=== PATIENT | male | born 1965 | race Caucasian/White ===

== ENCOUNTER 2018-01-09 18:00 | Emergency (ER) | payer OTHER, SELFPAY ==
[2018-01-09 18:09] VITALS: BP 148/84; PULSE 57; RESP 18; TEMP 36.5; O2SAT 97; BMI 31.9
--- NOTE | 2018-01-09 18:25 | ED_ITS ---
HPI - Extremity Problem General Chief complaint: Extremity Problem,Nontraumatic Stated complaint: BLOOD SQUIRTING FROM SURGICAL SITE Time Seen by Provider: 01/09/18 18:05 Source: patient and family Mode of arrival: ambulatory Limitations: no limitations History of Present Illness HPI Narrative: 52-year-old with very recent left knee arthroscopic surgery presents with his son and evaluation of bleeding from the incision site. He had just completed a surgical procedure at a free standing surgical site and while driving home felt warmth and wetness in his dressing and noted it to be saturated with blood. He called the on-call orthopedist and was referred here for further evaluation. He denies fever or chills. He is not dizzy nor weak or lightheaded. Onset (ago): minute(s) Related Data Allergies Allergy/AdvReac Type Severity Reaction Status Date / Time No Known Drug Allergies Allergy Verified 01/09/18 18:09 Review of Systems Review of Systems All systems reviewed & are unremarkable except as noted in HPI and below Constitutional Denies chills, Denies fever(s), Denies lethargy and Denies weakness Eyes Denies change in vision, Denies eye discharge, Denies irritation and Denies loss of vision ENT Ears, Nose, Mouth, and Throat: Denies change in voice, Denies neck pain and Denies sore throat Cardiovascular Denies chest pain, Denies irregular heart rhythm, Denies lightheadedness, Denies palpitations, Denies dyspnea, Denies dyspnea on exertion and Denies orthopnea Respiratory Denies cough, Denies dyspnea, Denies dyspnea on exertion and Denies wheezing Gastrointestinal Gastrointestinal: Denies abdominal pain, Denies change in bowel habits, Denies diarrhea, Denies nausea and Denies vomiting Genitourinary Denies hematuria, Denies flank pain, Denies urinary incontinence and Denies urinary urgency Musculoskeletal Reports joint swelling, Reports limited range of motion and Denies neck pain Integumentary/Breasts Denies pruritus, Denies erythema, Denies rash and Denies wounds Neurologic Denies confusion, Denies loss of vision and Denies weakness Psychiatric Denies anxiety, Denies confusion, Denies depression, Denies homicidal ideation and Denies suicidal ideation Endocrine Denies palpitations Hematologic/Lymphatic Denies easy bruising Allergic/Immunologic Denies wheezing [facility] Social History Smoking Status: Never smoker Exam Narrative Exam Narrative: GEN: AOx3 and in mild distress EYES: Pupils are equal, round, and reactive to light and accommodation. Extraoccular muscles are intact bilaterally. There is no subconjunctival hemorrhage or exudate. CHEST: Lungs are clear to auscultation bilaterally and free of wheezes, rales, or rhonchi. Heart rate is regular rhythm, there are no murmurs, clicks, rubs, or gallops. There is no chest wall tenderness. ABD: Abdomen is soft and nontender. There is no guarding or rebound. Bowel sounds are normal in all 4 quadrants. There is no mass or organomegaly. EXT: Left knee decreased range of motion secondary to pain and swelling. Surgical dressing saturated in blood. When removed lower to incision sites oozing dark blood. Patient has minimal pain. SKIN: Warm, pink, and dry. No erythema or rash Initial Vital Signs Initial Vital Signs: Vital Signs Temperature 97.7 F 01/09/18 18:09 Pulse Rate 57 L 01/09/18 18:09 Respiratory Rate 18 01/09/18 18:09 Blood Pressure 148/84 H 01/09/18 18:09 Pulse Oximetry 97 01/09/18 18:09 Procedures Laceration Repair Laceration 1: Site: lower extremity Side (If applicable): left Description: linear Depth: simple, single layer Local Anesthetic: lidocaine 1% and with epi Skin layer closed with: other (A few simple, interrupted deep, biting sutures achieved adequate hemostasis) Technique: other Course Orders Ordered: Discontinued Medications Oxycodone/Acetaminophen (Percocet 5/325) 2 tab PO NOW ONE Stop: 01/09/18 18:25 Last Admin: 01/09/18 18:28 Dose: 2 tab Consultations Consultation #1: Called to on-call orthopedist, happy with decision to place a few deep, biting sutures for hemostasis after discussion pressure not stopping bleeding. He recommends vaseline gauze and a pressure gauze with follow-up later today Vital Signs - 8 hr 01/09/18 18:09 Temperature 97.7 F Pulse Rate 57 L Respiratory Rate 18 Blood Pressure 148/84 H Pulse Oximetry 97 Discharge Plan Departure Patient Disposition: Home Clinical Impression: Postoperative hemorrhage from incision Discharge Date/Time: 01/09/18 19:29 Interventions: ED Discharge Assessment Last Done: 01/09/18 19:29 Instructions: DI for Post-Surgical Bleeding Activity Restrictions/Additional Instructions: *You have been diagnosed with [ post surgical bleeding ] *What to do: *continue to take medications as directed *Follow up with your orthopedist as planned, call for an appointment. Let them know you were seen in the Emergency Department and that we ask that you be seen in follow up *Return to ER if you should have any new, worsening or concerning symptoms Referrals: Dewayne Ellington MD [Physician] -
[2018-01-09] MEDS: OXYCODONE/ACETAMINOPHEN 5/325 TABLET 2 TAB PO (18:28)
--- NOTE | 2018-01-09 18:43 | PC.NURSE ---
s/p Artherscopic knee surgery done today, bleeding from surgical site, soaked the dressing and reinforced towel [employer]CTION[employer]. +CMS in L foot. Pt medicated with 2 tabs of oxycodone as ordered.
[2018-01-09 19:23] VITALS: BP 118/72; PULSE 91; RESP 17; O2SAT 98
--- NOTE | 2018-01-09 19:27 | PC.NURSE ---
R knee suture inplaced by Dr Penny. Xerofoam applied on the site and covered with ABD pads and wrapped with Kurlix and reinforced with acewrap. Pt advised to rewrap prn if L foot/toes become tingle/numb, delayed cap refill, pale or cool to touch. Pt verbalized the understanding.
== END 2018-01-09 19:29 | disposition home or self-care (01) ==
LOC: ED 19:30
PROVIDERS: Emergency Provider Emergency Medicine
DX: M96.830 Postprocedural hemorrhage of a musculoskeletal structure following a musculoskeletal system procedure (principal)
CPT/HCPCS: 12001; 99283; 99284

== ENCOUNTER 2018-07-07 09:45 | Inpatient (IN) | payer OTHER, SELFPAY ==
[2018-07-01 11:48] VITALS: BMI 34.2
[2018-07-07] VITALS (15 sets, daily range): BP systolic 100–139; BP diastolic 46–87; PULSE 76–101; RESP 10–20; TEMP 36.1–37.1; O2SAT 91–100; BMI 34.2
[2018-07-07] MEDS: LACTATED RINGERS 1,000 ML 42 ML IV ×2 (10:04→13:24)
--- NOTE | 2018-07-07 10:49 | PM.PREOP ---
Pre-operative Note Interval Note History & Physical reviewed/Exam performed by Physician: Yes Changes to H&P: No
[2018-07-07] MEDS: CEFAZOLIN 2 GM/100 ML FROZ.PIGGY IV ×2 (11:36→20:11)
--- NOTE | 2018-07-07 12:15 | SUR.OPER ---
Prone on spine table, head in foam head support, padded chest and pelvic supports, gel pad at knees, lower legs supported by pillows; nipples, genitalia and toes free of pressure, arms secured on foam padded arm boards at <90 degrees abduction. Tape over blanket at thigh secured to table.
[2018-07-07] MEDS: VANCOMYCIN 1,000 MG VIAL 1000 MG TOP (12:24)
[2018-07-07] MEDS: THROMBIN (RECOMBINANT) 5,000 UNIT VIAL 5000 UNIT TOP (12:25)
[2018-07-07] MEDS: BUPIVACAINE 0.5% (PF) 4 ML, MORPHINE-PF 4 MG, BUTORPHANOL 1 MG, fentaNYL 100 MCG INJ (12:36)
[2018-07-07] MEDS: SODIUM CHLORIDE 0.9% 1,000 ML, GENTAMICIN 80 MG IRR ×2 (12:36→12:37)
--- NOTE | 2018-07-07 14:23 | DI.RAD.S_ITS ---
PROCEDURE: XR LUMBAR SPINE 2-3V INDICATIONS: L5-S1 TLIF , TECHNIQUE: 2 views of the lumbar spine were acquired. COMPARISON: [facility], MR, MR LUMBAR SPINE WITHOUT CONTRAST, 05/09/2018, 10:31. FINDINGS: 2 intraoperative fluoroscopy images demonstrate discectomy and posterior fusion at L5-S1. IMPRESSION: Discectomy and posterior fusion at L5-S1. Dictated by: Karri Olmedo M.D. on 07/07/2018 at 16:30 Approved by: Karri Olmedo M.D. on 07/07/2018 at 16:31
--- NOTE | 2018-07-07 14:39 | P.OP_ITS ---
Operative Date/Time/Diagnoses Date of procedure: 07/07/18 Time of procedure: 14:34 Pre-op diagnosis: Lumbar stenosis with radiculopathy Post-op diagnosis: same Procedure & Clinicians Procedure: L5-S1 TLIF (post/post innerbody fusion) with cage L5 and S1 screws Iliac crest bone graft aspirate Use of microscope Placement of epidural catheter Indications: [age] year old male with intractable pain from stenosis. They had failed conservative management and requested operative intervention. Risks and benefits of surgery were discussed and appropriate consents were obtained. Surgeon: Greg Dickey Audio Visual Aids Director: Rox Levin Anesthesia Type: General Operative Notes Findings: None Closure Type: primary Specimen(s): none sent Prosthetic devices, grafts, tissues, transplants, or devices: NuVasive MAS reline screws Globus Rise cage Applied: catheter Estimated Blood Loss (mL): 20 Blood products transfused: none Procedure in detail: The patient was brought to the operating room and intubated on the table. A time-out was performed. They were then rolled over to the well- padded Vadim table in the prone position. Preoperative antibiotics were given. The back was prepped and draped in the standard sterile fashion. Using fluoroscopy, a 4 cm longitudinal incision was made to the right of the midline. We used Bovie to come down to and split the lumbodorsal fascia. Using fluoroscopy and monitoring, we then percutaneously placed Jamshidi needles down the pedicles of L5 and S1 on the right side. These were changed out to guidewires and then we tapped and then placed the NuVasive MAS Reline screw shanks. We then opened up the retractors and used Bovie to clear up the posterolateral gutter as well as medially along the lamina to the spinous processes. A bur was used to decorticate the transverse processes. We brought in the microscope. Using a combination of bur and Kerrison rongeurs, a laminectomy was performed from the right side. We cleared over past the midline and carefully depressed the dura until we were able to decompress the opposite side. We cleared out the neural foramen with a facetectomy. This completed the laminectomy at L5-S1. This was separate and distinct from the TLIF approach as we were decompressing the canal and the nerves. We then began the TLIF prep. We cleared off the rest of the facetectomy until we had an adequate approach to the disc space at L5-S1. We carefully cleaned up the remainder of the foramen until we could easily retract the exiting root as well as clearing medially below the dura and expose the disc space. The disc was prepped with bipolar and then an annulotomy was performed. We performed a diskectomy using a combination of paddles, jean paul, pituitaries, and curettes. We distracted the disc using a paddle and locked the retractor in an open position. We then filled the disc space with Osteocel bone graft. We then placed the globus Rise cage under fluoroscopy and then filled this in with more bone graft. The distraction on the retractor was released to compress down. This completed the posterior interbody fusion portion of the TLIF at L5-S1. We then placed the screw heads, sherley, and locked down the set screws. The wound was copiously irrigated. A small stab incision was made over the PSIS. We used a Jamshidi needle to aspirate several mL of bone marrow from the pelvis. This was mixed with the remaining Osteocell and combined with all of the locally harvested bone graft and placed in the posterolateral gutter for the posterior fusion of the TLIF at L5-S1. An epidural catheter was then placed in the spinal canal by carefully depressing the dura and advancing it 6 cm cephalad under the remaining lamina without resistance. The muscle fascia was closed. The catheter was then injected with a solution containing 4 mL of 0.5% Marcaine, 1 mg Stadol, 4 mg Duramorph, and 100 mcg of fentanyl. This was injected without resistance and the catheter was pulled. We then went to the opposite side. Again using fluoroscopy, a 3 cm incision was made and Bovie was used to come down to split the fascia. Using neural monitoring and fluoroscopy, Jamshidi needles were advanced down the pedicles of L5 and S1 on the left side. These were switched over guidewires, tapped, and screws placed. We then placed a sherley and locked the set screws on this side. The wound was irrigated. The fascia was closed. Vancomycin powder was placed in the wounds. The superficial and skin were closed. A sterile dressing was placed. The patient was then rolled over extubated and brought to recovery room without complications. Complications: none Condition: stable Disposition: PACU Plan for aftercare: Inpatient. Up with physical therapy.
[2018-07-07] MEDS: HYDROMORPHONE 2 MG INJ 0.5 MG IV ×4 (14:42→15:23)
[2018-07-07] MEDS: hydrOXYzine 50 MG/ML INJ IM (14:45)
[2018-07-07] MEDS: LORazepam 2 MG/ML SYRINGE 0.5 MG IV (15:16)
--- NOTE | 2018-07-07 15:33 | SUR.PHASEI ---
Report called to Nakia
--- NOTE | 2018-07-07 16:02 | SUR.PHASEI ---
Pt transferred to the floor with belongings bag and green jacket. Report to Nakia. VS stable. IV saline locked. Back drsg cdi.
[2018-07-07] MEDS: LACTATED RINGERS 1,000 ML 125 ML IV (16:11)
[2018-07-07] MEDS: OXYCODONE/ACETAMINOPHEN 5/325 TABLET 2 TAB PO ×2 (16:14→20:11)
[2018-07-07] MEDS: CELECOXIB 200 MG CAPSULE 400 MG PO (17:36)
[2018-07-07] MEDS: HYDROMORPHONE 1 MG INJ 0.5 MG IV ×2 (19:06→22:31)
[2018-07-07] MEDS: DOCUSATE 100 MG CAPSULE PO (20:05)
[2018-07-07] MEDS: MIRTAZAPINE 15 MG TABLET 30 MG PO (20:05)
[2018-07-07] MEDS: SENNOSIDES 8.6 MG TABLET 17.2 MG PO (20:05)
--- NOTE | 2018-07-07 21:22 | PC.NURSE ---
Pt alert/oriented. Pain between 5-8/10. Managed with Percocet, IV dilaudid, and ice. Dressing c/d/i, cms+. Continuous pulse ox on. RA 96%. Spouse staying the night. Using call light appropriately.
[2018-07-07] MEDS: hydrOXYzine pamoate 25 MG CAPSULE PO (23:48)
[2018-07-08] VITALS (7 sets, daily range): BP systolic 123–143; BP diastolic 60–89; PULSE 70–94; RESP 16–88; TEMP 36.4–36.8; O2SAT 98–100
[2018-07-08] MEDS: OXYCODONE/ACETAMINOPHEN 5/325 TABLET 2 TAB PO ×6 (00:31→22:37)
[2018-07-08] MEDS: LACTATED RINGERS 1,000 ML 125 ML IV (00:34)
[2018-07-08] MEDS: MAG HYDROX/ALUM/SIMETH 30 ML UDC PO ×2 (01:28→18:23)
[2018-07-08] MEDS: CEFAZOLIN 2 GM/100 ML FROZ.PIGGY IV (03:53)
[2018-07-08] MEDS: HYDROMORPHONE 0.5 MG INJ IV ×3 (04:08→16:25)
[2018-07-08 05:26] LABS: Hematocrit 38.8 % (41-53); Hemoglobin 12.9 g/dL (13.5-17.5)
--- NOTE | 2018-07-08 07:30 | PM.PNPO.1 ---
Subjective Date Patient Seen: 07/08/18 Time Patient Seen: 07:30 Interval history: Pain level 4 to 6/10, all across the back. He did require some IV Dilaudid overnight. Exam Vital Signs (past 8 hours): - 07/07/18 23:35 07/08/18 04:00 Temperature 98.7 F 98.0 F Pulse Rate 101 H 83 Respiratory Rate 16 16 Blood Pressure 125/77 137/68 Pulse Oximetry 97 98 Oxygen Delivery Method Room Air Oxygen Flow Rate 2 Const Orientation: alert and oriented x3 Back/Spine/Pelvis Other: Dressing was reinforced overnight but no new drainage. 5/5 motor both lower extremities. Objective Labs Result Diagrams: 07/08/18 04:53 Labs: Laboratory Results - last 24 hr 07/08/18 04:53 Hgb 12.9 L Hct 38.8 L Assessment & Plan Post-op Postoperative Procedures Operation Date: 07/07/18 11:45 Actual Procedures Side Surgeon p L5-S1 TLIF w/Instru fusion & bone graft Greg Dickey MD He looks good. Mobilize today with physical therapy. Anticipate discharge home tomorrow. Quality VTE Deep Vein Thrombosis/Pulmonary Embolism Present on Admission: No
[2018-07-08] MEDS: CELECOXIB 200 MG CAPSULE PO ×2 (09:03→21:09)
[2018-07-08] MEDS: ATORVASTATIN 10 MG TABLET PO (09:03)
[2018-07-08] MEDS: DOCUSATE 100 MG CAPSULE PO ×2 (09:03→21:10)
--- NOTE | 2018-07-08 10:17 | PT.IIE ---
Current Diagnoses Spinal stenosis, lumbar region with neurogenic claudication (07/07/18) Strain of muscle, fascia and tendon of lower back, initial encounter (07/07/18) Surgery Performed Operation Date: 07/07/18 11:45 Actual Procedures p L5-S1 TLIF w/Instru fusion & bone graft - Greg Dickey MD Surgical History (Last Updated 07/01/18 @ 12:16 by Lily Walton RN) History of bilateral carpal tunnel release (Acute) History of bilateral cataract extraction (Acute) Hx of arthroscopy of left knee (Acute) Hx of tonsillectomy (Acute) S/P manipulation of AC joint (Acute) Status post left unicompartmental knee replacement (Acute ~2017) Medical History (Last Updated 07/01/18 @ 12:16 by Lily Walton RN) Acid reflux (Acute) Anxiety (Acute) Anxiety attack (Acute ~2016) Arthritis (Acute) Bronchitis (Acute) Eczema (Acute) Hyperlipidemia (Acute) PVCs (premature ventricular contractions) (Acute) Sciatica (Acute) Physical Therapy Inpatient Evaluation/Re-Eval M1 PT/OT-IP Prior Functional Status Start: 07/08/18 12:03 Freq: NEEDED Status: Active Protocol: Document 07/08/18 10:17 AB (Rec: 07/08/18 12:27 AB [id number]) Medical Review Prior Functional Status Medical History Reviewed Yes Communication able to make needs known Mobility and Gait pt stated that he is independent with all mobilities and ambulation without AD Social History Household Members spouse children Living Arrangements House Number of Floors (Floors) One Floor Number of Stairs To Enter/Railing? 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 [employer] M2 PT-IP Current Condition Start: 07/08/18 12:03 Freq: NEEDED Status: Active Protocol: Document 07/08/18 10:17 AB (Rec: 07/08/18 12:27 AB [id number]) Physical Therapy Current Condition Current Condition Evaluation Date 07/08/18 Treatment Diagnosis s/p L5S1 TLIF; difficulty in walking Onset Date 07/07/18 Precautions Lumbar Precautions Log Roll No Twisting Limit Bending Lifting Restriction of 10 lbs Gait Belt above Incisional Area M3 PT-IP Subjective Start: 07/08/18 12:03 Freq: NEEDED Status: Active Protocol: Document 07/08/18 10:17 AB (Rec: 07/08/18 12:27 AB [id number]) Subjective Physical Therapy Visit Type Type Initial Evaluation Visit Start Time 10:17 Visit Stop Time 10:46 Total Visit Minutes 29 Number of FWS FACULTY ASSISTANT Visits 0 Physical Therapy Visit Comments Patient Comments Pt agreeable to do PT Therapy Pain Assessment Pain When Pain Assessed At Rest Pain Present Pain Present Pain Reported Location Back Intensity 7 Scale Used Numeric (1 - 10) Pain Behaviors Guarding Pain Management Techniques Re-positioning Timing of Activity with Medications M4 PT-IP Mobility and Gait Start: 07/08/18 12:03 Freq: NEEDED Status: Active Protocol: Document 07/08/18 10:17 AB (Rec: 07/08/18 12:27 AB [id number]) PT-Bed Mobility Assessment Rolling Type of Rolling Log Rolling Level of Assist Standby Assistance Supine to Sit Supine to Sit Standby Assistance Sit to Supine Sit to Supine Standby Assistance Scooting Scooting to Edge of Bed Standby Assistance Scooting Up and Down in Bed Standby Assistance PT-Transfer Assessment Sit to and From Stand Sit to and from Stand Standby Assistance Comments Mobility Comments educated on log roll bed mobilty and pt completed SBA with cues for techniques. Gait Assessment Gait Gait Assistance Required: Standby Assistance Contact Guard Assist Distance (Feet) 50 Able to Maintain Weight Bearing Status Yes During Gait Assistive Devices Assistive Device Gait Belt Front Wheeled Walker Gait Deviations General Gait Pattern Antalgic Factors Limiting Gait Function Factors Limiting Gait Function Decreased Activity Tolerance Decreased Strength Limited Range of Motion Pain Comments Gait Comments pt refused to walk in the hallway but agreed to walk in room. pt required SBA to CGA and cues for safety. PT-Balance Assessment Sitting Balance and Reactions Static Sitting Balance Ability Good Dynamic Sitting Balance Ability Good Standing Balance and Reactions Static Standing Balance Ability Fair Dynamic Standing Balance Ability Fair Device Used FWW M5 PT-IP Objective Assessments Start: 07/08/18 12:03 Freq: NEEDED Status: Active Protocol: Document 07/08/18 10:17 AB (Rec: 07/08/18 12:27 AB [id number]) Orientation Orientation/Cognition Level of Alertness Alert Orientation Name Age Birthday Month Date Year Day of Week Place Situation Safety Awareness Decreased Safety Awareness Gross Range of Motion Lower Extremity ROM Assessment Within Functional Limits Strength Lower Extremity Strength Assessment Within Functional Limits Sensation Assessment Sensation Gross Sensation WNL M6 PT-IP Treatment Start: 07/08/18 12:03 Freq: NEEDED Status: Active Protocol: Document 07/08/18 10:17 AB (Rec: 07/08/18 12:27 AB [id number]) Physical Therapy Treatment Education Education Provided Precautions Weight Bearing Status Post-Op Packet Safety M7 PT-IP Assessment and Plan Start: 07/08/18 12:03 Freq: NEEDED Status: Active Protocol: Document 07/08/18 10:17 AB (Rec: 07/08/18 12:27 AB [id number]) PT Summary Assessment and Plan Potential Rehabilitation Potential Good Status of Condition at Evaluation Stable Summary Impairments Pain ROM Strength Balance Coordination Sensation Tone Cognition Bed Mobility Transfers Gait Activity Tolerance Assessment Summary pt requiring one person assist with mobility and will have his spouse to assist him at home. will conduct caregiver training when appropriate and will complete stair climbing prior to d/c. Goals Bed Mobility Goal Independent Transfer Goal Independent Front Wheeled Walker Gait Goal Independent Front Wheel Walker Gait Distance 250 Other Goals up/down 1 step using FWW SBA Days to Meet Goals 3 Frequency of Treatment Frequency Of Treatment Twice a Day Treatment Plan Physical Therapy Treatment Plan Bed Mobility Training Transfer Training Gait Training Therapeutic Exercise Balance Retraining Post Op Education Discharge Planning Hot or Cold Pack Neuromuscular Re-ed Coordination Retraining Manual Therapy Other Recommendations and Next Treatment ambulation, stair climbing, Focus caregiver training Recommendations To Nursing Amount of Assist Needed 1 Person Assist Discharge Recommendations PT Discharge Recommendations Home with Assistance Equipment Needed for Home Before FWW: stated that he will Discharge borrow one
--- NOTE | 2018-07-08 14:10 | OT.IP.EVAL ---
Current Diagnoses Spinal stenosis, lumbar region with neurogenic claudication (07/07/18) Strain of muscle, fascia and tendon of lower back, initial encounter (07/07/18) Surgery Performed Operation Date: 07/07/18 11:45 Actual Procedures p L5-S1 TLIF w/Instru fusion & bone graft - Greg Dickey MD Past Medical History (Last Updated 07/01/18 @ 12:16 by Lily Walton RN) Acid reflux (Acute) Anxiety (Acute) Anxiety attack (Acute ~2016) Arthritis (Acute) Bronchitis (Acute) Eczema (Acute) Hyperlipidemia (Acute) PVCs (premature ventricular contractions) (Acute) Sciatica (Acute) Surgical History (Last Updated 07/01/18 @ 12:16 by Lily Walton RN) History of bilateral carpal tunnel release (Acute) History of bilateral cataract extraction (Acute) Hx of arthroscopy of left knee (Acute) Hx of tonsillectomy (Acute) S/P manipulation of AC joint (Acute) Status post left unicompartmental knee replacement (Acute ~2017) Occupational Therapy Inpatient Evaluation/Re-Eval M1 PT/OT-IP Prior Functional Status Start: 07/08/18 12:03 Freq: NEEDED Status: Active Protocol: Document 07/08/18 14:10 PJM (Rec: 07/08/18 17:04 PJ [id number]) Medical Review Prior Functional Status Medical History Reviewed Yes Diet/Fluid Consistency Regular Communication WNL Mobility and Gait pt stated that he is independent with all mobilities and ambulation without AD, but llmited by LBP and radiating B LE pain. 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 Social History Household Members spouse children Living Arrangements House Number of Floors (Floors) Two Floors Number of Stairs To Enter/Railing? 1 Home Environment High Toilet Walk in Shower Home Equipment Straight Cane Raised Toilet Seat Without Armrests Employment Status [employer] Employed Additional Social History Comment Pt will stay on main level of home. He has 2 adult children (both work), 1 lives in separate living space on lower level, second child lives with them. His does not work outside the home and can provide 24 hr assist at d/c. M2 OT-IP Current Condition Start: 07/08/18 16:48 Freq: Status: Active Protocol: Document 07/08/18 14:10 PJM (Rec: 07/08/18 17:04 PJM [id number]) Occupational Therapy Current Condition Current Condition Evaluation Date 07/08/18 Treatment Diagnosis decreased self care, mobility s/p L5-S1 TLIF Diagnosis Onset Date 07/07/18 Post Operative Precautions Lumbar Precautions Log Roll No Twisting Limit Bending Lifting Restriction of 10 lbs Gait Belt above Incisional Area M3 OT- IP Subjective and Pain Start: 07/08/18 16:48 Freq: Status: Active Protocol: Document 07/08/18 14:10 PJM (Rec: 07/08/18 17:04 PJM [id number]) OT- Subjective Occupational Therapy Visit Type Type Initial Evaluation Visit Start Time 13:30 Visit Stop Time 14:10 Total Visit Minutes 40 Notes Pt's here for education this session Occupational Therapy Visit Comments Patient Comments The pain in both my legs is almost all gone. It is so much better than it was before surgery. Patient/Caregiver Goals to go home and return to light duty work in 6 weeks OT Pain Assessment Pain When Pain Assessed After Treatment Pain Present Pain Present Pain Reported Location Back Intensity 4 Scale Used Numeric (1 - 10) Description Aching Acute M4 OT- IP ADL's Start: 07/08/18 16:48 Freq: Status: Active Protocol: Document 07/08/18 14:10 PJM (Rec: 07/08/18 17:04 PJM [id number]) OT CBV-Vuub-Qftaavr General Evaluation Self-Feeding Ability Independent OT ADL-Grooming General Evaluation Grooming Ability Independent Comments OT Grooming Comments standing at sink after education re: body mechanics OT ADL-Oral Care General Eval Oral Care Ability Independent Comments Oral Care Comments provided education re: body mechanics and pt verbalizes understanding OT ADL-Dressing General Eval Upper Body Dressing Ability Standby Assistance Lower Body Dressing Ability Moderate Assistance Areas Needing Assistance Underpants/Brief Pants/Shorts Socks Shoes Assistive Devices Dressing Assistive Devices Long Handled Shoe Horn Button Maker And Installer Sock Aid Comments OT Dressing Comments began education re: adapted techniques for lower body dressing with transmission rebuilder, sock aid and long shoe horn. All equipt provided to pt at his request. OT ADL-Toileting General Evaluation Toileting Ability Independent Areas Needing Assistance Perform Perineal Hygiene Devices Toileting Assistive Devices Urinal Comments OT Toileting Comments provided education re: body mechanics during josef care and optional use of toilet paper aid/resources for obtaining one OT ADL-Bathing Devices Bathing Equipment Long Handled Sponge or [place] Comments OT Bathing Comments Pt declines to shower here; provided education re: body mechanics and equipment options; provided long bath sponge. pt states shower stall too small for shower seat. M5 OT- IP IADL's Start: 07/08/18 16:48 Freq: Status: Active Protocol: Document 07/08/18 14:10 PJM (Rec: 07/08/18 17:04 [facility] [id number]) OT-Instrumental Activities of Daily Living Deficits IADL Deficits Identified Deficits Home Safety Awareness Awareness of Need for Assistance at Home Good Awareness Ability to Problem Solve Emergency Able to Problem Solve Situations Medication Management Medication Management No Deficits Identified Money Management Money Management No Deficits Identified Meal Preparation Meal Preparation Caregiver Provides Assist Meal Preparation Comments to assist PRN Rink Rat Rink Rat Caregiver Provides Assist Rink Rat Comments to assist PRN Driving Driving Caregiver Provides Assist Driving Comments to assist until pt able M6 OT- IP Functional Cognition Start: 07/08/18 16:48 Freq: Status: Active Protocol: Document 07/08/18 14:10 PJM (Rec: 07/08/18 17:04 [facility] [email or web address]) Cognitive Factors Limiting Selfcare Function Cognitive Ability Level of Alertness Alert Patient Orientation Name Age Birthday Month Date Year Day of Week Place Situation Attention Span Ability Capable of Focused Attention Capable of Sustained Attention Ability to Follow Commands Able to Follow One Step Commands Able to Follow Multi-Step Commands Memory Description No Deficits Noted Safety Awareness No Deficits Noted Executive Function Ability No Deficits Noted Abstract Thinking Ability No Deficits Noted Cognitive Comments Cognitive Assessment Comments Pt verbalizes and demonstrates understanding of 3/3 lumbar spine precautions; asking appropriate questions about adapted ADL techniques. OT- Vision and Hearing OT- Hearing Assessment OT- Hearing Assessment WFL OT- Vision Assessment Visual Acuity WFL Glasses All The Time M7 OT- IP Mobility and Balance Start: 07/08/18 16:48 Freq: Status: Active Protocol: Document 07/08/18 14:10 PJM (Rec: 07/08/18 17:04 [facility] [id number]) OT- Bed Mobility Assessment Rolling Type of Rolling Roll to Left Level of Assistance Standby Assistance Supine to Sit Supine to Sit Assist Standby Assistance Sit to Supine Sit to Supine Assist Standby Assistance Scooting Scooting to Edge of Bed Standby Assistance OT-Transfer Assessment Sit to and From Stand Sit to and from Stand Standby Assistance Transfers Transfer Ability Standby Assistance Technique Transfer Destination Bed Chair Transfer Technique Stand Step Pivot Devices Transfer Assistive Devices Front Wheeled Walker Comments Mobility Comments Pt had urgent need to use bathroom; declines gait belt. OT- Gait Assessment Gait Gait Assistance Required: Standby Assistance Distance (Feet) 40 Assistive Devices Assistive Device Front Wheeled Walker Comments Gait Ability Comments SBA with FWW OT- Balance Assessment Sitting Balance and Reactions Static Sitting Balance Ability Good Dynamic Sitting Balance Ability Good Standing Balance and Reactions Static Standing Balance Ability Good Dynamic Standing Balance Ability Good M9 OT- IP Assessment and Plan Start: 07/08/18 16:48 Freq: Status: Active Protocol: Document 07/08/18 14:10 PJM (Rec: 07/08/18 17:04 PJM [id number]) OT Summary Assessment and Plan Potential Rehabilitation Potential Excellent Analytic Complexity at Evaluation Low Summary OT Impairments Pain Functional Mobility Dressing Assessment Summary Low complexity OT assessment completed with emphasis on lumbar spine precautions during all self are and functional mobility. Pt had good pain control this session and moving well after further education re: log rolling at pt request. Pt has minimal performance deficits in lower body dressing, bathing and toileting. Plan 1 more OT visit in AM for further training. Anticipate pt will d/c home tomorrow with 24 hr assist from supportive, capable . Goals Dressing Goal Independent Long Handled Shoe Horn Button Maker And Installer Sock Aid Toileting Goal Independent Toilet Transfer Goal Independent Patient/Caregiver Education Goal Demonstrate Post-Op Precautions Demonstrate Energy Conservation and Pacing Caregiver Independent Assisting Patient Days to Meet Goals 1 Frequency of Treatment Frequency Of Treatment Once a Day Treatment Plan OT Treatment Plan ADL Training Functional Mobility Patient/Family Education Discharge Planning Discharge Recommendations OT Discharge Recommendations Home with Assistance Home Equipment Needs provided transmission rebuilder, sock aid, long bath sponge and long shoe horn
--- NOTE | 2018-07-08 15:00 | PC.NURSE ---
Day Shift- Lower back dressing removed per Dr. Dickey order at bedside. Removed for saturated amount of bloody drainage to post op dressing, no drainage to the reinforced lieutenant shift supervisor dressing. Incisions cleansed with NS, incisions X2 well approximated with sutures intact. No active draining. Area covered with coversite dressing.
--- NOTE | 2018-07-08 16:31 | CM.DPNOTE ---
DCP/Assessment: Reviewed chart. Patient is a 52yr old male admitted [facility] for [facility]Fusion on 07-07-[address] Dickey. PCP is Dr. Chaudhry. Primary payor is 1)Alaina Moore. Met with patient explained CM/SW role. Patient sitting in recliner at time of visit. Spouse at bedside. Patient reports that he hopes to d/c home tomorrow. Patient requesting to get tall FWW for home use. Notified patient that TITLE SEARCHER will check with therapy and Orthopedics prior to d/c. Unclear on whether or not we can distribute FWW from [facility] Contact at insurance is Judy # [phone]. Will need to call her if script/order obtained. Also need to check with therapy on whether or not they have tall walker on hand. P: Anticipate home tomorrow. Patient most likely will need tall FWW for home use. Patient reports that he has requested from insurance/Judy so it might already be intitiated through insurance. PAM Brown Discharge Planning/Care Management CM Discharge Assessment Start: 07/08/18 16:29 Freq: Status: Active Protocol: Document 07/08/18 16:29 KJS (Rec: 07/08/18 16:31 KJS [id number]) Discharge Planning Assessment Contact Information Debra Galan (spouse) Advance Directives? No: Declines further information History Provided By Patient Significant Other Medical Record Prior Living Arrangements House Household Members spouse children Type of transporation used prior to Drives own vehicle admit Independent with ADL's Yes Is patient alert and oriented? Yes Caregiver for Another No Comment Patient would like tall FWW for home use. Barriers to Discharge No Discharge Plan Home Transportation Arrangement Family to provide transport. Whiteboard Updated in Patient Room with Yes name and ext. # of Wool Scourer Review Status In Process Please Provide Date Initial DC 07/08/18 Assessment Was Performed Next Review Type Continued Stay Review Pre-Anesthesia Assessment Start: 07/01/18 11:48 Freq: Status: Complete Protocol: Document 07/01/18 11:48 CAB (Rec: 07/01/18 12:26 CAB [id number]) Pre-Anesthesia Assessment Patient Information Reviewed Via Phone Assessment Assessment Completed With Patient Diagnostic Results CBC EKG Primary Care Provider Jus Chaudhry Seen Specialist in Last 12 Months Yes Specialist Seen Orthopedist Primary Language Liberian Adjuster Leader Required No Height 185.42 cm Weight 117.934 kg Body Mass Index (BMI) 34.2 Hearing Ability Normal Visual Assist Glasses Dentition Type Teeth, Natural Present Barriers to Learning None Other Aids No Hx Anesthesia Reactions Yes: Post-op nausea, vomiting Hx Family Anesthesia Reaction No Hx Malignant Hyperthermia No Hx Blood Transfusions No Anesthesia Review Requested No Groundskeeping Maintenance No alcohol intake current alcohol intake frequency holidays/special occasions only Smoking Status Former smoker how long ago did patient quit smoking Quit age 20 Substance Use Type does not use Pain Present Pain Reported Musculoskeletal Symptoms Abnormal Gait Back Pain Difficulty Walking Joint Pain Muscle Weakness Numbness Radiating Pain into Limb Tingling History of Falling (Recent or History of No ) Patient is completely paralyzed or No completely immobile Mental Status Oriented to own ability Is patient on oxygen? No Does patient have SALVADOR/SOB No Hx Sleep Apnea No Currently Taking a Beta Jude No Can You Climb a Flight of Stairs Without Yes SOB Hx Chest Pain No Hx SOB No Hx Syncope or Dizziness No Anti-Coagulant Therapy No Has a Salesperson Trailers And Motor Homes No Cardiac Testing No Hx Pacemaker/ICD No Pacemaker Rep Required? No Cardiac Clearance Received Not Applicable Diet Type At Home Regular dysphagia No Urinary Catheter Present No Hx Urinary Self Catheterization No Diabetes No Hx Drug Resistant Organism No Presence of External or Internal Medical No Devices Have you traveled outside the [facility] States in the last 30 days? Marital Status Lives With spouse children Prior Living Arrangements House Number of Floors (Floors) One Floor Number of Stairs To Enter/Railing? 2 steps, no railing Support System Child/Children Spouse Does the Patient Have Assistance After Yes Surgery Patient Discharge Plan Description Return Home Comment Pt advised 2 day length of stay per surgeon's office Feels Safe in Current Environment Yes Been Physically Hurt or Threatened By a No Person in Current Environment Do you have thoughts of harming yourself None or others? Are you currently considering suicide? No Do you have a plan to hurt yourself or No Plan others? Do You Have Any Spiritual Beliefs That No May Affect Your HC Choices? Do You Have Any Cultural Practices That No May Affect Your HC Choices? Spiritual Referral None Comment Roman Catholic Who Can We Speak to About Patient's Care Family, friends Identifying Code for Release of Patient Declines to issue Information Health Care Proxy/Next of Kin Debra () Health Care Proxy Emergency Contact Name Debra () Emergency Contact Advance Directives? No: Declines further information Power of Condenser Winder No PAC Instructions Do not shave/clip surgical site Durable medical equipment Medications to take/avoid Nasal antibiotic No ETOH/petroleum product on skin DOS NPO Post-op transportation Pre-surgical wash Sturdy shoes/comfortable clothes Do not bring valuables and remove jewelry
--- NOTE | 2018-07-08 16:35 | PT.IPTN ---
Current Diagnoses Spinal stenosis, lumbar region with neurogenic claudication (07/07/18) Strain of muscle, fascia and tendon of lower back, initial encounter (07/07/18) Surgery Performed Operation Date: 07/07/18 11:45 Actual Procedures p L5-S1 TLIF w/Instru fusion & bone graft - Greg Dickey MD Physical Therapy Treatment Note M2 PT-IP Current Condition Start: 07/08/18 12:03 Freq: NEEDED Status: Active Protocol: Document 07/08/18 10:17 AB (Rec: 07/08/18 12:27 AB [id number]) Physical Therapy Current Condition Current Condition Evaluation Date 07/08/18 Treatment Diagnosis s/p L5S1 TLIF; difficulty in walking Onset Date 07/07/18 Precautions Lumbar Precautions Log Roll No Twisting Limit Bending Lifting Restriction of 10 lbs Gait Belt above Incisional Area M3 PT-IP Subjective Start: 07/08/18 12:03 Freq: NEEDED Status: Active Protocol: Document 07/08/18 15:00 CLB (Rec: 07/08/18 16:35 CLB [id number]) Subjective Physical Therapy Visit Type Type Treatment Note Visit Start Time 15:00 Visit Stop Time 15:23 Number of SNAP SHEARER Visits 1 Physical Therapy Visit Comments Patient Comments Pt agreeable to do PT Pt stated he had pain going down posterior right leg. Patient Goals wants to go home tomorrow Therapy Pain Assessment Pain When Pain Assessed During Mobility Pain Present Pain Present Pain Reported Location Back Intensity 5 Scale Used Numeric (1 - 10) Pain Management Techniques Re-positioning Timing of Activity with Medications M4 PT-IP Mobility and Gait Start: 07/08/18 12:03 Freq: NEEDED Status: Active Protocol: Document 07/08/18 15:00 CLB (Rec: 07/08/18 16:35 CLB [id number]) PT-Bed Mobility Assessment Rolling Type of Rolling Log Rolling Level of Assist Standby Assistance Supine to Sit Supine to Sit Standby Assistance Sit to Supine Sit to Supine Standby Assistance Scooting Scooting to Edge of Bed Standby Assistance Scooting Up and Down in Bed Standby Assistance PT-Transfer Assessment Sit to and From Stand Sit to and from Stand Standby Assistance Equipment Transfer Assistive Device None Bed Rail Front Wheeled Walker Orthotic/Prosthetic Devices or Brace: No Comments Mobility Comments Pt and educated on log roll bed mobilty and pt completed SBA with cues for techniques. Gait Assessment Gait Gait Assistance Required: Standby Assistance Distance (Feet) 600 Able to Maintain Weight Bearing Status Yes During Gait Assistive Devices Assistive Device Gait Belt Front Wheeled Walker Gait Deviations General Gait Pattern Antalgic Factors Limiting Gait Function Factors Limiting Gait Function Decreased Activity Tolerance Decreased Strength Limited Range of Motion Pain Comments Gait Comments Pt ambulated from room to stairs with WC follow which pt did not use. Pt required SBA using good safety awareness. Stair Climbing Assessment Evaluation Level of Assist On Stairs Standby Assistance Devices Stair Climbing Assistive Devices Front Wheel Walker Technique/Endurance Stair Climbing Direction Ascend and Descend Stair Climbing Technique Step to Step Number of Steps Climbed 1 Query Text: Stair Climbing Set # Repetitions (reps) 2 Comments Stair Climbing Comments Pt performed platform stair training with present. PT-Balance Assessment Sitting Balance and Reactions Static Sitting Balance Ability Good Dynamic Sitting Balance Ability Good Standing Balance and Reactions Static Standing Balance Ability Fair Dynamic Standing Balance Ability Fair Device Used FWW M5 PT-IP Objective Assessments Start: 07/08/18 12:03 Freq: NEEDED Status: Active Protocol: Document 07/08/18 10:17 AB (Rec: 07/08/18 12:27 AB [id number]) Orientation Orientation/Cognition Level of Alertness Alert Orientation Name Age Birthday Month Date Year Day of Week Place Situation Safety Awareness Decreased Safety Awareness Gross Range of Motion Lower Extremity ROM Assessment Within Functional Limits Strength Lower Extremity Strength Assessment Within Functional Limits Sensation Assessment Sensation Gross Sensation WNL M6 PT-IP Treatment Start: 07/08/18 12:03 Freq: NEEDED Status: Active Protocol: Document 07/08/18 10:17 AB (Rec: 07/08/18 12:27 AB [id number]) Physical Therapy Treatment Education Education Provided Precautions Weight Bearing Status Post-Op Packet Safety M7 PT-IP Assessment and Plan Start: 07/08/18 12:03 Freq: NEEDED Status: Active Protocol: Document 07/08/18 15:00 CLB (Rec: 07/08/18 16:35 CLB [id number]) PT Summary Assessment and Plan Potential Rehabilitation Potential Good Status of Condition at Evaluation Stable Summary Impairments Pain ROM Strength Balance Coordination Sensation Tone Cognition Bed Mobility Transfers Gait Activity Tolerance Assessment Summary Pt is SBA for all mobility including log roll. Pt successfully climbed stairs SBA and ambulated ~600ft to stairs and back and reported pain of 5/10 during ambulation . Goals Bed Mobility Goal Independent Transfer Goal Independent Front Wheeled Walker Gait Goal Independent Front Wheel Walker Gait Distance 250 Other Goals up/down 1 step using FWW SBA Frequency of Treatment Frequency Of Treatment Twice a Day Treatment Plan Physical Therapy Treatment Plan Bed Mobility Training Transfer Training Gait Training Therapeutic Exercise Balance Retraining Post Op Education Discharge Planning Hot or Cold Pack Neuromuscular Re-ed Coordination Retraining Manual Therapy Recommendations To Nursing Amount of Assist Needed 1 Person Assist Discharge Recommendations PT Discharge Recommendations Home with Assistance Equipment Needed for Home Before FWW: stated that he will Discharge borrow one
--- NOTE | 2018-07-08 19:58 | PC.NURSE ---
Lower back dressing changed at 1600. Coversite dressing removed. A moderate amount of sanguineous drainage was present. Both incisions were well approximated, with no signs of infection. Minimal bruising and swelling. 4x4 gauze pads x3 applied over incision and covered with Tegaderm dressing. Dressing still C/D/I at 1930.
[2018-07-08] MEDS: MIRTAZAPINE 15 MG TABLET 30 MG PO (21:09)
[2018-07-08] MEDS: SENNOSIDES 8.6 MG TABLET 17.2 MG PO (21:09)
[2018-07-08] MEDS: SODIUM CHLORIDE 0.9% FLUSH 10 ML IV (21:09)
[2018-07-08] MEDS: GABAPENTIN 300 MG CAPSULE PO (21:09)
[2018-07-09] MEDS: OXYCODONE/ACETAMINOPHEN 5/325 TABLET 2 TAB PO ×4 (02:33→15:02)
[2018-07-09 05:00] VITALS: BP 127/64; PULSE 63; RESP 16; TEMP 36.4; O2SAT 97
[2018-07-09] MEDS: SODIUM CHLORIDE 0.9% FLUSH 10 ML IV ×2 (05:24→08:33)
[2018-07-09] MEDS: HYDROMORPHONE 0.5 MG INJ IV (05:25)
[2018-07-09 07:43] VITALS: BP 144/77; PULSE 64; RESP 16; TEMP 36.6; O2SAT 95
--- NOTE | 2018-07-09 07:59 | PM.PNPO.1 ---
Subjective Date Patient Seen: 07/09/18 Time Patient Seen: 07:59 Interval history: Over the right posterior leg pain started to recur overnight. Severe every time he tries to roll over. Exam Vital Signs (past 8 hours): - 07/09/18 05:00 07/09/18 07:43 Temperature 97.6 F 98 F Pulse Rate 63 64 Respiratory Rate 16 16 Blood Pressure 127/64 144/77 H Pulse Oximetry 97 95 Oxygen Delivery Method Room Air Oxygen Flow Rate 0 Const Orientation: alert and oriented x3 Back/Spine/Pelvis Other: Moderate drainage. 5/5 motor both lower extremities Objective Labs Result Diagrams: 07/08/18 04:53 Assessment & Plan Post-op Postoperative Procedures Operation Date: 07/07/18 11:45 Actual Procedures Side Surgeon p L5-S1 TLIF w/Instru fusion & bone graft Greg Dickey MD as he was doing well yesterday but the pain started back going down the leg, I think this is primarily inflammatory. I am going to start him on a course of IV steroids. If this settles down, then I think he would be fine for going home today. If not 1 more day. Quality VTE Deep Vein Thrombosis/Pulmonary Embolism Present on Admission: No
[2018-07-09] MEDS: DEXAMETHASONE 4 MG/ML VIAL 10 MG IV (08:32)
[2018-07-09] MEDS: CELECOXIB 200 MG CAPSULE PO (08:32)
[2018-07-09] MEDS: ATORVASTATIN 10 MG TABLET PO (08:32)
[2018-07-09] MEDS: DOCUSATE 100 MG CAPSULE PO (08:32)
[2018-07-09] MEDS: MULTIVITAMIN 1 TABLET 1 TAB PO (08:32)
[2018-07-09 11:16] VITALS: BP 132/65; PULSE 56; RESP 16; TEMP 37.1; O2SAT 94
[2018-07-09] MEDS: MAG HYDROX/ALUM/SIMETH 30 ML UDC PO (11:19)
--- NOTE | 2018-07-09 11:34 | PC.NURSE ---
Addendum entered by Shea Zeng R.N. 07/09/18 15:32: Spoke with Dr. Dickey this afternoon, reported that patient wants to go home today. Pt aware that New prescription for Steroids will be electronically placed by dr. Dickey to [facility] pharmacy in [place] per pt request. other hardcopy prescriptions given to pt. Reviewed discahrge summary with pt and his . Reviewed dressing change, follow up appointment confirmed with office, S/S of infection , pain management, mobility. No voiced concerns. States has all belongings. Pt left unit via wheelchair with RATTLESNAKE FARMER at 1530 in no distress. Pt's son present to drive the pt and his home. Original Note: Day Shift- Scheduled Decadron 10mg IV X1 given at 0830 with no effect yet upon reassessment at 1130. Will monitor, plan for next scheduled dose around 1400. pt hopeful to still discharge home later today. Pt needs reminders for proper log rolling in bed, to keep walker in front of him when ambulating and no twisting at the waist. At 1115, lower back dressing removed for approx 75% of sang drainage on 4X4 gauze. Incisions well approximated, no S/S of infection, sutures intact. Area cleansed with NS, 3-4x4 gauze applied and covered with coversite dressing. Pt tolerated well.
--- NOTE | 2018-07-09 12:45 | OT.IP.TRT ---
Current Diagnoses Spinal stenosis, lumbar region with neurogenic claudication (07/07/18) Strain of muscle, fascia and tendon of lower back, initial encounter (07/07/18) Surgery Performed Operation Date: 07/07/18 11:45 Actual Procedures p L5-S1 TLIF w/Instru fusion & bone graft - Greg Dickey MD Occupational Therapy Treatment Note M2 OT-IP Current Condition Start: 07/08/18 16:48 Freq: Status: Active Protocol: Document 07/08/18 14:10 PJM (Rec: 07/08/18 17:04 PJM [id number]) Occupational Therapy Current Condition Current Condition Evaluation Date 07/08/18 Treatment Diagnosis decreased self care, mobility s/p L5-S1 TLIF Diagnosis Onset Date 07/07/18 Post Operative Precautions Lumbar Precautions Log Roll No Twisting Limit Bending Lifting Restriction of 10 lbs Gait Belt above Incisional Area M3 OT- IP Subjective and Pain Start: 07/08/18 16:48 Freq: Status: Active Protocol: Document 07/09/18 12:45 PJM (Rec: 07/09/18 15:09 PJM [id number]) OT- Subjective Occupational Therapy Visit Type Type Administrative Note Visit Start Time 12:45 Notes Per RN, pt had increased RLE overnight and is now on steroids. Per pt, he is now feeling much better than this AM. He states he used lower body dressing equipt independently this AM. His supportive can provide 24 hr assist at d/c and he hopes to go home later today if his pain continues to improve and he clears P.T. Pt does not feel he needs any further OT services. No charge. M
--- NOTE | 2018-07-09 12:53 | PT.IPTN ---
Current Diagnoses Spinal stenosis, lumbar region with neurogenic claudication (07/07/18) Strain of muscle, fascia and tendon of lower back, initial encounter (07/07/18) Surgery Performed Operation Date: 07/07/18 11:45 Actual Procedures p L5-S1 TLIF w/Instru fusion & bone graft - Greg Dickey MD Physical Therapy Treatment Note M2 PT-IP Current Condition Start: 07/08/18 12:03 Freq: NEEDED Status: Active Protocol: Document 07/08/18 10:17 AB (Rec: 07/08/18 12:27 AB [id number]) Physical Therapy Current Condition Current Condition Evaluation Date 07/08/18 Treatment Diagnosis s/p L5S1 TLIF; difficulty in walking Onset Date 07/07/18 Precautions Lumbar Precautions Log Roll No Twisting Limit Bending Lifting Restriction of 10 lbs Gait Belt above Incisional Area M3 PT-IP Subjective Start: 07/08/18 12:03 Freq: NEEDED Status: Active Protocol: Document 07/09/18 12:45 SA (Rec: 07/09/18 12:53 SA [id number]) Subjective Physical Therapy Visit Type Type Treatment Note Visit Start Time 11:16 Visit Stop Time 11:48 Total Visit Minutes 32 Number of BUSINESS OFFICE TECHNICIAN Visits 2 Physical Therapy Visit Comments Patient Comments Pt recieved steroid prior to PT session, pt eager to walk. Patient Goals To d/c home today. Therapy Pain Assessment Pain When Pain Assessed During Mobility Pain Present Pain Present Pain Reported Location Back Intensity 3 Pain Management Techniques Re-positioning Timing of Activity with Medications M4 PT-IP Mobility and Gait Start: 07/08/18 12:03 Freq: NEEDED Status: Active Protocol: Document 07/09/18 12:45 SA (Rec: 07/09/18 12:53 SA [id number]) PT-Bed Mobility Assessment Rolling Type of Rolling Log Rolling Roll to Right Level of Assist Standby Assistance Supine to Sit Supine to Sit Standby Assistance Sit to Supine Sit to Supine Standby Assistance Scooting Scooting to Edge of Bed Standby Assistance Scooting Up and Down in Bed Standby Assistance PT-Transfer Assessment Sit to and From Stand Sit to and from Stand Standby Assistance Equipment Transfer Assistive Device Front Wheeled Walker Orthotic/Prosthetic Devices or Brace: No Transfers Transfer Destination Bed Chair Transfer Technique Stand Step Pivot Transfer Ability Level of Assist Standby Assistance Comments Mobility Comments Review of log roll technique to simulate home, SBA with cues. Stand pivot txs with FWW and SBA-IND. PT demonstrates good safety awareness and knowledge of precautions. Gait Assessment Gait Gait Assistance Required: Standby Assistance Distance (Feet) 400 Able to Maintain Weight Bearing Status Yes During Gait Assistive Devices Assistive Device Gait Belt Front Wheeled Walker Gait Deviations General Gait Pattern Antalgic Factors Limiting Gait Function Factors Limiting Gait Function Decreased Activity Tolerance Decreased Strength Limited Range of Motion Pain Comments Gait Comments Gait training with FWW and SBA , good safety and ability to avoid obstacles. Very minimal R leg pain today. Stair Climbing Assessment Evaluation Level of Assist On Stairs Standby Assistance Devices Stair Climbing Assistive Devices Front Wheel Walker Technique/Endurance Stair Climbing Direction Ascend and Descend Stair Climbing Technique Step to Step Number of Steps Climbed 1 Query Text: Stair Climbing Set # Repetitions (reps) 2 Comments Stair Climbing Comments Pt able to manage stairs safely. M5 PT-IP Objective Assessments Start: 07/08/18 12:03 Freq: NEEDED Status: Active Protocol: Document 07/08/18 10:17 AB (Rec: 07/08/18 12:27 AB [id number]) Orientation Orientation/Cognition Level of Alertness Alert Orientation Name Age Birthday Month Date Year Day of Week Place Situation Safety Awareness Decreased Safety Awareness Gross Range of Motion Lower Extremity ROM Assessment Within Functional Limits Strength Lower Extremity Strength Assessment Within Functional Limits Sensation Assessment Sensation Gross Sensation WNL M6 PT-IP Treatment Start: 07/08/18 12:03 Freq: NEEDED Status: Active Protocol: Document 07/09/18 12:45 SA (Rec: 07/09/18 12:53 SA [id number]) Physical Therapy Treatment Education Education Provided Precautions Weight Bearing Status Post-Op Packet Safety M7 PT-IP Assessment and Plan Start: 07/08/18 12:03 Freq: NEEDED Status: Active Protocol: Document 07/09/18 12:45 SA (Rec: 07/09/18 12:53 SA [id number]) PT Summary Assessment and Plan Potential Rehabilitation Potential Good Status of Condition at Evaluation Stable Summary Assessment Summary PT ready for d/c home with . Safe with gait and stairs, understands precautions. Will dispense FWW this afternoon. Frequency of Treatment Frequency Of Treatment Twice a Day Recommendations To Nursing Amount of Assist Needed 1 Person Assist Discharge Recommendations PT Discharge Recommendations Home with Assistance Equipment Needed for Home Before Will dispense FWW Discharge
[2018-07-09] MEDS: DEXAMETHASONE 4 MG/ML VIAL IV (13:48)
--- NOTE | 2018-07-09 14:07 | P.DS_ITS ---
History of Present Illness Date Patient Seen: 07/09/18 Time Patient Seen: 08:00 Chief complaint: Translaminar Interbody Fusion/Laminotomy CPT-NOTES Narrative: 52 year old male with low back and RLE pain. Failed PT, meds, AMADA Discharge Providers Date of admission: 07/07/18 09:45 Discharge Date: 07/09/18 Primary care physician: Jus Chaudhry MD Consults: 07/07/18 15:49 Consult to Occupational Therapy Evaluate & Treat Comment: Physician Instructions: Evaluate and treat Consult to Physical Therapy Evaluate & Treat Comment: Physician Instructions: Evaluate and Treat 07/09/18 11:50 Consult to Physical Therapy Evaluate & Treat Comment: FWW for home use Physician Instructions: Evaluate and Treat Discharge provider: Greg Dickey MD Summary Discharge Diagnosis: lumbar stenosis with radiculopathy Hospital Course: He was admitted on 07/07/18 where he had a L5S1 laminectomy and TLIF fusion. He did great POD#1 but then began getting recurrent RLE pain. He was started on IV decadron POD#2 and his pain levels quickly began improving. By the afternoon he felt much more comfortable and wanted to go home. He had passed PT and was stable and safe. Status at Discharge Cognitive/behavioral status at discharge: oriented Functional status at discharge: uses cane/walker Overall status at discharge: patient is progressing back to baseline Exam Vital Signs (past 8 hours): - 07/09/18 07:43 07/09/18 11:16 Temperature 98 F 98.7 F Pulse Rate 64 56 L Respiratory Rate 16 16 Blood Pressure 144/77 H 132/65 Pulse Oximetry 95 94 Oxygen Delivery Method Room Air Oxygen Flow Rate 0 Const Orientation: alert and oriented x3 Back/Spine/Pelvis Other: mod drainage. 5/5 motor BLE Objective Labs Result Diagrams: 07/08/18 04:53 Discharge Plan Discharge Plan Patient Disposition: Home Discharge comment: f/u 1.5 wks Discharge Med Rec/Prescriptions Prescriptions: New celecoxib [Celebrex] 200 mg Capsule 200 mg PO BID PRN (Reason: pain) Qty: 60 RF: 0 hydroxyzine pamoate 25 mg Capsule 25 mg PO Q4HR PRN (Reason: spasms) Qty: 20 RF: 0 oxycodone-acetaminophen 5-325 mg Tablet See Rx Instructions .ROUTE .COMPLEX PRN (Reason: Pain, Moderate (4-6)) Qty: 50 RF: 0 docusate sodium 100 mg Capsule 100 mg PO BID PRN (Reason: constipation) Qty: 30 RF: 0 Continued atorvastatin 10 mg Tablet 10 mg PO DAILY RF: 0 ranitidine HCl 75 mg Tablet 75 mg PO DAILY PRN (Reason: heartburn) RF: 0 mirtazapine 30 mg Tablet 30 mg PO BEDTIME RF: 0 multivitamin Tablet 1 tab PO DAILY RF: 0 Discontinued naproxen sodium [Aleve] 220 mg Capsule 440 mg PO BID PRN (Reason: pain) RF: 0 Follow up/Referrals: Jus Chaudhry MD [Primary Care Provider] - Provider Discharge Instructions Diet: Diet as Tolerated Activity: limited BLT 10 lbs max Skin/Wound/Dressing Care Report to your healthcare provider any signs of infection, such as:: chills, fever, night sweats, increased pain, unusual drainage and unusual redness Dressing: may change dressing and shower POD#5 Visit Report/Discharge Packet Instructions: How to Prevent Falls, DI for Postoperative Pain, DI for Trans foraminal Lumbar Interbody Fusion Stand Alone Forms: Surgery Discharge Discharge Data Primary Care Provider: Jus Chaudhry Attending Provider: Greg Dickey Admit Date/Time: 07/07/18 09:45 Quality VTE Deep Vein Thrombosis/Pulmonary Embolism Present on Admission: No
--- NOTE | 2018-07-09 14:32 | PT.IPTN ---
Current Diagnoses Spinal stenosis, lumbar region with neurogenic claudication (07/07/18) Strain of muscle, fascia and tendon of lower back, initial encounter (07/07/18) Surgery Performed Operation Date: 07/07/18 11:45 Actual Procedures p L5-S1 TLIF w/Instru fusion & bone graft - Greg Dickey MD Physical Therapy Treatment Note M2 PT-IP Current Condition Start: 07/08/18 12:03 Freq: NEEDED Status: Active Protocol: Document 07/08/18 10:17 AB (Rec: 07/08/18 12:27 AB [id number]) Physical Therapy Current Condition Current Condition Evaluation Date 07/08/18 Treatment Diagnosis s/p L5S1 TLIF; difficulty in walking Onset Date 07/07/18 Precautions Lumbar Precautions Log Roll No Twisting Limit Bending Lifting Restriction of 10 lbs Gait Belt above Incisional Area M3 PT-IP Subjective Start: 07/08/18 12:03 Freq: NEEDED Status: Active Protocol: Document 07/09/18 14:25 SA (Rec: 07/09/18 14:32 [id number]) Subjective Physical Therapy Visit Type Type Treatment Note Visit Start Time 13:45 Visit Stop Time 14:05 Total Visit Minutes 20 Notes Pt had steriod at beginning of session. Number of SHIP MATE Visits 3 Physical Therapy Visit Comments Patient Comments Pt ready to walk, states it helps his back and R LE feel better. Therapy Pain Assessment Pain When Pain Assessed During Mobility Pain Present Pain Present Pain Reported Location Back Intensity 3 Scale Used Numeric (1 - 10) Pain Management Techniques Re-positioning Timing of Activity with Medications M4 PT-IP Mobility and Gait Start: 07/08/18 12:03 Freq: NEEDED Status: Active Protocol: Document 07/09/18 14:25 SA (Rec: 07/09/18 14:32 [id number]) PT-Bed Mobility Assessment Rolling Type of Rolling Log Rolling Roll to Right Level of Assist Standby Assistance Supine to Sit Supine to Sit Standby Assistance Sit to Supine Sit to Supine Standby Assistance Scooting Scooting to Edge of Bed Standby Assistance Scooting Up and Down in Bed Standby Assistance PT-Transfer Assessment Sit to and From Stand Sit to and from Stand Standby Assistance Equipment Transfer Assistive Device None Front Wheeled Walker Orthotic/Prosthetic Devices or Brace: No Transfers Transfer Destination Bed Chair Transfer Technique Stand Step Pivot Transfer Ability Level of Assist Standby Assistance Comments Mobility Comments PT SBA-IND with transfers and bed mobility. Safe with use of FWW and able to transer with no AD and SBA. Gait Assessment Gait Gait Assistance Required: Standby Assistance Distance (Feet) 450 Able to Maintain Weight Bearing Status Yes During Gait Assistive Devices Assistive Device Gait Belt Front Wheeled Walker Gait Deviations General Gait Pattern Antalgic Factors Limiting Gait Function Factors Limiting Gait Function Decreased Activity Tolerance Decreased Strength Limited Range of Motion Pain Comments Gait Comments FWW issued for d/c home this afternoon, sized for patient and used with gait training this afternoon, SBA and demonstrates good safety. Stair Climbing Assessment Evaluation Level of Assist On Stairs Standby Assistance Devices Stair Climbing Assistive Devices Front Wheel Walker Technique/Endurance Stair Climbing Direction Ascend and Descend Stair Climbing Technique Step to Step Number of Steps Climbed 1 Query Text: Stair Climbing Set # Repetitions (reps) 2 Comments Stair Climbing Comments Pt able to manage stairs safely. M5 PT-IP Objective Assessments Start: 07/08/18 12:03 Freq: NEEDED Status: Active Protocol: Document 07/08/18 10:17 AB (Rec: 07/08/18 12:27 AB [id number]) Orientation Orientation/Cognition Level of Alertness Alert Orientation Name Age Birthday Month Date Year Day of Week Place Situation Safety Awareness Decreased Safety Awareness Gross Range of Motion Lower Extremity ROM Assessment Within Functional Limits Strength Lower Extremity Strength Assessment Within Functional Limits Sensation Assessment Sensation Gross Sensation WNL M6 PT-IP Treatment Start: 07/08/18 12:03 Freq: NEEDED Status: Active Protocol: Document 07/09/18 14:25 SA (Rec: 07/09/18 14:32 [id number]) Physical Therapy Treatment Education Education Provided Precautions Weight Bearing Status Post-Op Packet Safety Other Treatments Other Treatment Performed Standing balance with no AD and lateral weight shifts, postural correction. M7 PT-IP Assessment and Plan Start: 07/08/18 12:03 Freq: NEEDED Status: Active Protocol: Document 07/09/18 14:25 SA (Rec: 07/09/18 14:32 [id number]) PT Summary Assessment and Plan Potential Rehabilitation Potential Good Status of Condition at Evaluation Stable Summary Progress Towards Goals Safe For Discharge Assessment Summary Pt ready for d/c home today with and son. FWW dispensed and pt has no other equipment needs. Demonstrates safe mobility. Recommendations To Nursing Amount of Assist Needed 1 Person Assist Discharge Recommendations PT Discharge Recommendations Home with Assistance Equipment Needed for Home Before FWW dispensed Discharge
== END 2018-07-09 15:30 | disposition home or self-care (01) | DRG 455 ==
PROVIDERS: Admitting Provider Orthopaedic Surgery; PCP Family Medicine; Visit Provider Orthopaedic Surgery
PROC: 0SG30AJ Fusion of Lumbosacral Joint with Interbody Fusion Device, Posterior Approach, Anterior Column, Open Approach (ICD-10-PCS; principal; 2018-07-07 11:45)
DX: M48.062 Spinal stenosis, lumbar region with neurogenic claudication (principal); M79.604 Pain in right leg
CPT/HCPCS: 36415; 72100; 76000; 85014; 85018; 94762; 97116; 97161; 97165; 97530; 97535; C1776; C1788; J0330; J0595; J0690; J1100; J1170; J2060; J2250; J2274; J2405; J2704; J3010; J3410

== ENCOUNTER → 2019-11-12 10:08 | Outpatient (CLI) | payer OTHER, SELFPAY ==
[2018-07-07 15:49] VITALS: BMI 34.2
[2019-11-12 11:10] LABS: Add Manual Diff / Slide Review NO; Basophils Absolute Auto 100 /uL (0-100); Basophils Percent Auto 0.6 % (0-2); Eosinophils Absolute Auto 300 /uL (0-450); Eosinophils Percent Auto 3.8 % (2-4); Hematocrit 45.1 % (41-53); Hemoglobin 15.1 g/dL (13.5-17.5); Lymphocytes Absolute Auto 2300 /uL (1100-4500); Lymphocytes Percent Auto 27.6 % (25-40); Mean Corpuscular HGB Conc 33.5 % (30-36); Mean Corpuscular Hemoglobin 30.9 PG (26-34); Mean Corpuscular Volume 92.3 fL (80-100); Monocytes Absolute Auto 600 /uL (0-900); Monocytes Percent Auto 7.3 % (3-14); Neutrophils Absolute Auto 5100 /uL (1500-7000); Neutrophils Percent Auto 60.7 % (50-75); Platelet Count 257 X10^3/uL (150-400); Red Blood Cell Count 4.88 X10^6/uL (4.5-5.9); Red Cell Distribution Width 13.4 % (11.6-14.8); White Blood Cell Count 8.4 X10^3/uL (4.5-11.0)
[2019-11-12 11:41] LABS: Alanine Aminotransferase 44 IU/L (<50); Albumin 4.7 g/dL (3.5-5.0); Albumin Globulin Ratio 1.9 (1.0-2.8); Alkaline Phosphatase 82 U/L (38-126); Aspartate Aminotransferase 30 IU/L (17-59); BUN Creatinine Ratio 17.9 (6-22); Blood Urea Nitrogen 19 mg/dL (9-20); Calcium 10.2 mg/dL (8.4-10.2); Carbon Dioxide 28 mmol/L (22-32); Chloride 103 mmol/L (98-107); Estimated Glomerular Filt Rate > 60.0 mL/min (>60); Globulin 2.5 g/dL (1.7-4.1); Glucose 107 mg/dL (70-100); HEMOLYSIS < 15 (0-50); Sodium 139 mmol/L (137-145); Total Protein 7.2 g/dL (6.3-8.2)
[2019-11-12 11:59] LABS: Free T4, Direct Thyroxine 0.86 ng/dL (0.78-2.19)
[2019-11-12 12:13] LABS: Thyroid Stimulating Hormone 2.15 uIU/mL (0.47-4.68)
== END ==
PROVIDERS: PCP Family Medicine; Referring Provider Psychiatry & Neurology Psychiatry; Visit Provider Psychiatry & Neurology Psychiatry
DX: F33.9 Major depressive disorder, recurrent, unspecified (principal)
CPT/HCPCS: 36415; 80053; 84439; 84443; 85025; 90792